=== PATIENT | female | born 1990 | race Caucasian/White ===

== ENCOUNTER 2016-10-01 14:58 | Emergency (ER) | payer OTHER ==
[~2016-10-01] VITALS: Ht 175.3 cm; Wt 95.0 kg
[2016-10-01 15:03] VITALS: BP 139/83; TEMP 99.9
[2016-10-01] MEDS ORDERED: SYNTHROID0.125 MG/T PO (15:07)
[2016-10-01 18:15] LABS: INFLUENZA B POSITIVE
[2016-10-01 18:38] VITALS: PULSE 90
== END 2016-10-01 18:39 | disposition home or self-care (01) ==
LOC: COL.ER 14:58
PROVIDERS: Physician Assistant
DX: J10.1 Influenza due to other identified influenza virus with other respiratory manifestations (principal); F17.210 Nicotine dependence, cigarettes, uncomplicated